=== PATIENT | female | born 1950 | race African-American/Black ===

== ENCOUNTER 2017-10-23 17:27 | Inpatient (IN) | payer MEDICARE, SELFPAY ==
[2017-10-23 18:30] LABS: #Basophils 0.1 thou/uL (0.0-0.2); #Lymphocytes 1.6 thou/uL (1.20-3.40); #Monocytes 0.6 thou/uL (0.11-0.59); %Basophils 1.7 % (0.0-1.0); %Eosinophils 0.7 % (0.0-10.0); %Lymphocytes 25.4 % (21.0-51.0); %Monocytes 9.1 % (0.0-10.0); %Neutrophils 63.1 % (42.0-75.0); Hemoglobin 13.1 g/dL (12.0-16.0); Mean Corpuscular HGB CONC 32.4 g/dL (32.0-36.0); Mean Corpuscular Hemoglobin 28.8 pg (27.0-31.0); Mean Corpuscular Volume 88.8 fl (81.0-99.0); Mean Platelet Volume 8.9 fL (7.4-10.4); Platelet Count 185 thou/uL (130-400); RBC Distribution Width 14.2 % (11.5-14.5); Red Blood Cell (RBC) Count 4.55 mill/uL (4.20-5.40); White Blood Cell (WBC) Count 6.4 thou/uL (4.8-10.8)
--- NOTE | 2017-10-23 18:53 | RAD ---
LEFT HUMERUS TWO VIEWS: 10/23/2017 HISTORY: Left upper arm pain after falling from a standing position. FINDINGS: There is a fracture involving the most proximal left humeral diaphysis/metadiaphysis, and the distal fracture fragment is displaced medially by approximately 2.4 cm, and there is mild overriding of the fracture fragments with slight apex medial angulation of fracture fragments. No additional fracture is seen, and there is no obvious dislocation appreciated on the provided images. IMPRESSION: Displaced and mildly angulated fracture involving the proximal left humerus. POS: ROSE
--- NOTE | 2017-10-23 18:55 | RAD ---
LEFT SHOULDER THREE VIEWS: 10/23/2017 HISTORY: Left upper arm pain after falling from a standing position. FINDINGS: As noted on views of the humerus, there is a fracture involving the left proximal humeral metadiaphys is, and the distal fracture fragment is displaced medially by almost one full shaft width, and there is medial angulation of the fracture fragments. There is irregularity in the region of the lateral a spect of humeral head on the provided images, and fracture extending through the region of the greate r tuberosity is a possibility. IMPRESSION: Displaced and as well as angulated fracture involving the proximal left humerus. Fracture may also extend into the region of the greater tuberosity. POS: ROSE
[2017-10-23 19:01] LABS: ALT (SGPT) 20 U/L (8-55); AST (SGOT) 34 U/L (5-34); Albumin 4.1 g/dL (3.4-4.8); Alkaline Phosphatase 145 U/L (40-150); Anion Gap 14 mmol/L (10-20); BUN (Urea Nitrogen) 11 mg/dL (9.8-20.1); Bilirubin, Total 0.3 mg/dL (0.2-1.2); Calc. Creatinine Clearance 0 mL/min (70-130); Calcium 9.7 mg/dL (7.8-10.44); Carbon Dioxide 26 mmol/L (23-31); Chloride 105 mmol/L (98-107); Estimated GFR-MDRD Greater than 90; Globulin 4.2 g/dL (2.4-3.5); Glucose 111 mg/dL (80-115); Potassium 4.5 mmol/L (3.5-5.1); Protein, Total 8.3 g/dL (6.0-8.3); Sodium 140 mmol/L (136-145)
[2017-10-23] MEDS ORDERED: Ondansetron ODT 4 MG TAB ONE (19:39)
[2017-10-23] MEDS ORDERED: Morphine 4 MG/ML VIAL ONE (19:39)
[2017-10-23] MEDS ORDERED: Fentanyl 100 MCG/2 ML VIAL ONE (19:44)
[2017-10-23] MEDS ORDERED: Morphine 4 MG/ML VIAL SLOW IVP PRN (21:38)
[2017-10-23] MEDS ORDERED: hydrALAZINE 20 MG/ML VIAL SLOW IVP PRN (21:38)
[2017-10-23] MEDS ORDERED: Dextrose 5% in Water 1,000 ML IV PRN (21:38)
[2017-10-23] MEDS ORDERED: HYDROcodone/Acetaminophen 10/325 mg Tablet PO PRN ×2 (21:38)
[2017-10-23] MEDS ORDERED: Dextrose 50% Abboject 50 ML SYRINGE SLOW IVP PRN (21:38)
[2017-10-23] MEDS ORDERED: Famotidine 20 MG TAB PO SCH (21:45)
[2017-10-23 21:55] VITALS: BMI 39.0
--- NOTE | 2017-10-23 22:53 | HP ---
DATE OF ADMISSION: 10/23/2017 REQUESTING PHYSICIAN: Dr. Le, Emergency Department. ADMITTING PHYSICIAN: Daron López M.D. CONSULTING PHYSICIAN: Dr. Wright, Orthopedics. HISTORY OF PRESENT ILLNESS: Ms. Henriquez is a 67-year-old female, who was in her usual state of heal th today when she was working at her house and get down to straighten out a rug and subsequently fell over. She reports that she fell against the wall and hit her left arm. She felt an immediate pain in her left arm and felt a deformity. She did not have any loss of consciousness. There were no oth er injuries. Pain is exacerbated by movement. Pain is alleviated by nothing. She was transported t o the Emergency Department, where a left humerus fracture was identified. Trauma Services was consul jose for admission and management. Dr. Wright, Orthopedics, was consulted for management of fractur e. The patient was evaluated in the ER. PAST MEDICAL HISTORY: 1. Heart murmur. 2. Hypertension. 3. Epilepsy. PAST SURGICAL HISTORY: Bilateral tubal ligation. SOCIAL HISTORY: The patient lives at home with . Denies alcohol, drug or tobacco use. ALLERGIES: No known drug allergies. CURRENT MEDICATIONS: 1. Phenytoin 300 mg at bedtime. 2. Phenobarbital 32.4 mg twice daily. 3. Lisinopril 10 mg daily. EKG: Normal sinus rhythm. LABORATORY STUDIES: Hematology: WBC 6.4, RBC 4.55, hemoglobin 13.1, hematocrit 40.1, platelets 185. Chemistry: Sodium 140, potassium 4.5, chloride 105, carbon dioxide 26, BUN 11, creatinine 0.75, gl ucose 111. DIAGNOSTIC IMAGING: Displaced angulated fracture involving the proximal left humerus. REVIEW OF SYSTEMS: Constitutional: The patient denies chills, fever, recent weight loss, or general malaise. HEENT: Denies otorrhea, rhinorrhea, sore throat, or neck pain. Cardiovascular: Denies c hest pain, palpitations, or syncope. Respiratory: Denies cough, shortness of breath, or wheezing. Gastrointestinal: Denies abdominal pain, nausea, vomiting, diarrhea, or constipation. Musculoskelet al: Complains of pain in left arm, complaints of fall. Skin: Denies rashes or other skin trauma. Neurologic: Denies dizziness, focal weakness or deficit. Psychiatric: Denies. PHYSICAL EXAMINATION: VITAL SIGNS: Blood pressure 141/59, pulse 62, respirations 16, O2 sat 95% on room air. Pain is 0. CONSTITUTIONAL: A well-developed, well-nourished female, in no acute distress, lying on bed. HEENT: Atraumatic, normocephalic. No posterior neck tenderness. Trachea is midline. No JVD. PULMONARY: Bilateral breath sounds clear. No respiratory distress. Chest movement is symmetrical. CARDIOVASCULAR: Regular rate and rhythm. Heart sounds normal. ABDOMEN: Soft, nontender, nondistended, no masses. Pelvis is stable. EXTREMITIES: Bilateral lower extremities within normal limits. Right upper extremity within normal limits. Left upper extremity with deformity noted to the left upper arm. Cap refill brisk, 2+ pulse s in all extremities. Neurovascularly intact in all extremities. BACK: Normal inspection and normal range of motion. No pain with palpation. NEUROLOGIC: GCS is 15. Awake, alert, and oriented x3. PSYCHIATRIC: Normal mood and affect. SKIN: Warm and dry, color within normal limits. ASSESSMENT: 1. Status post ground level fall. 2. Left displaced humerus fracture. 3. Acute traumatic pain. 4. History of epilepsy, present on admission. 5. History of hypertension, present on admission. PLAN: 1. Admit to surgical floor by Trauma Services. 2. Consult to Adriana, Orthopedics. Dr. Wright plan to take the patient to OR in the morning. 3. Regular diet until midnight. N.p.o. after midnight. IV fluids after midnight. 4. Oral analgesia with IV for breakthrough. 5. Pepcid for PUD prophylaxis. 8. SCDs for DVT prophylaxis. Plan of care was discussed at length with patient and family. The patient was reviewed with Dr. López, who agrees with plan.
[2017-10-23] MEDS: Sodium Chloride 0.9% 1,000 ML IV SCH (23:03)
[2017-10-23] MEDS: Acetaminophen 1,000 MG in Premix Bag 1 BAG IVPB SCH (23:05)
[2017-10-24 05:39] LABS: Anion Gap 10 mmol/L (10-20); BUN (Urea Nitrogen) 10 mg/dL (9.8-20.1); Calc. Creatinine Clearance 150 mL/min (70-130); Calcium 8.7 mg/dL (7.8-10.44); Carbon Dioxide 23 mmol/L (23-31); Chloride 110 mmol/L (98-107); Estimated GFR-MDRD Greater than 90; Glucose 95 mg/dL (80-115); Potassium 4.4 mmol/L (3.5-5.1); Sodium 139 mmol/L (136-145)
[2017-10-24] MEDS: Acetaminophen 1,000 MG in Premix Bag 1 BAG IVPB SCH ×2 (05:53→12:32)
[2017-10-24] MEDS ORDERED: Fentanyl 250 MCG/5 ML VIAL ONE (08:15)
[2017-10-24] MEDS ORDERED: Ondansetron ODT 4 MG TAB ONE (08:20)
[2017-10-24] MEDS ORDERED: CEFAZOLIN/Water 2 GM/20 ML SYRINGE ONE (08:20)
[2017-10-24] MEDS ORDERED: PHENobarbital 32.4 MG TAB PO SCH (09:00)
[2017-10-24] MEDS ORDERED: Lisinopril 10 MG TAB PO SCH (09:00)
[2017-10-24] MEDS ORDERED: Famotidine 20 MG TAB PO SCH (09:00)
[2017-10-24] MEDS ORDERED: Aspirin 81 mg Enteric Coated Tablet PO SCH (09:00)
[2017-10-24] MEDS ORDERED: Phenylephrine HCL 10 MG/ML VIAL ONE (09:15)
[2017-10-24] MEDS ORDERED: Promethazine HCl 25 MG/ML VIAL SLOW IVP PRN (09:32)
[2017-10-24] MEDS ORDERED: HYDROmorphone 2 MG/ML VIAL SLOW IVP PRN (09:32)
[2017-10-24] MEDS ORDERED: Promethazine HCl 25 MG/ML VIAL IM PRN (09:32)
[2017-10-24] MEDS ORDERED: Morphine Sulfate 2 MG/ML SYRINGE SLOW IVP PRN (09:32)
[2017-10-24] MEDS ORDERED: Ondansetron HCl/PF 4 MG/2 ML Vial IVP PRN (09:32)
[2017-10-24] MEDS ORDERED: traMADol HCl 50 MG TAB PO PRN ×2 (10:07)
[2017-10-24] MEDS: Sodium Chloride 0.9% 1,000 ML IV SCH ×2 (13:07→18:04)
[2017-10-24 13:37] VITALS: BP 140/81; TEMP 97.7
[2017-10-24] MEDS ORDERED: PROPOFOL 200 MG/20 ML VIAL ONE (14:03)
[2017-10-24] MEDS ORDERED: ePHEDrine/0.9% NaCl/PF SYRINGE 50 mg/10 ml ONE (14:03)
[2017-10-24] MEDS ORDERED: PHENYLEPHRINE-NS 100 MCG/ML 10 ML SYRINGE ONE (14:03)
[2017-10-24] MEDS ORDERED: Lidocaine 1% PF 5 ML VIAL ONE (14:03)
[2017-10-24] MEDS ORDERED: Glycopyrrolate 0.2 MG/ML 5 ML SYRINGE ONE (14:03)
[2017-10-24] MEDS ORDERED: Dexamethasone 20 MG/5 ML VIAL ONE (14:03)
[2017-10-24] MEDS ORDERED: Ibuprofen 600 MG TAB PO SCH (15:00)
[2017-10-24] MEDS ORDERED: CEFAZOLIN/Water 2 GM/20 ML SYRINGE SLOW IVP SCH (16:00)
[2017-10-24] MEDS ORDERED: Acetaminophen 500 MG TAB PO SCH (18:00)
--- NOTE | 2017-10-24 18:17 | RAD ---
INTRAOPERATIVE FLUOROSCOPY: HISTORY: ORIF left humerus. COMPARISON: None. EXPOSURE: 56.8 seconds 9.54 mGy FINDINGS: Three fluoroscopic views demonstrate a proximal humerus fracture. There is an intramedullary cristina wit h three separate screws that traverse the proximal and mid humerus. IMPRESSION: Fluoroscopy as above. POS: ROSE
--- NOTE | 2017-10-25 14:22 | OP ---
DATE OF SURGERY: 10/24/2017 PREOPERATIVE DIAGNOSIS: Left proximal humerus fracture. POSTOPERATIVE DIAGNOSIS: Left proximal humerus fracture. SURGICAL PROCEDURE: IM nail of left proximal humerus fracture. ANESTHESIA: General. SURGEON: Harvey Wright M.D. ESTIMATED BLOOD LOSS: 50 mL IMPLANTS: A Synthes 7 x 150 mm humeral X nail was used with a spiral blade and 2 locking screws. COMPLICATIONS: None. DRAINS: None. SPECIMENS: None. OUTCOME: Satisfactory. INDICATIONS: The patient is a 67-year-old lady status post left proximal humerus fracture with displ acement. After discussion with patient including risks and benefits, we decided to proceed with IM n ail stabilization to improve alignment and hopefully provide more reliable healing. Informed consent has been obtained. I believe all questions answered. DESCRIPTION OF PROCEDURE: The patient was brought to the operating room and a timeout performed, fol lowed by induction of general anesthesia. Next, the patient was positioned in a beach chair position and a sterile prep and drape was performed in the left upper extremity. Next, a small incision was made keying off the anterior lateral corner of the acromion. After skin was sharply incised, dissect ion was carried down bluntly to the underlying deltoid. The deltoid was incised in line with the ski n incision and a deltoid splitting approach to the underlying proximal humerus was obtained. The sub deltoid bursa was resected and then the greater tuberosity and the attachment of the rotator cuff on the tuberosity was visualized. Next, a guidewire was passed just posterior to the bicipital groove c entered on the tip of the greater tuberosity and trying to avoid as much of the cuff as possible. On ce this was passed down the canal of the femur, an opening reamer was passed over this guidewire. Ne xt, the 7 x 150 mm nail was passed from this opening across the fracture into the proximal humeral sh aft and with its passage, excellent alignment was achieved. Next, the jig was applied and then a sec ond small incision was made distal to the first and then the spiral blade was inserted in standard fa shion after the threaded guidewire was passed through the jig. Next, a second proximal screw was edward cassius again using the same proximal jig and then a single distal cross-locking screw was applied gettin g excellent stability across the fracture. Next, the jig was removed from the proximal end of the na il and then the locking mechanism engaged for the spiral blade. The three incisions were irrigated w ith normal saline. The two distal incisions were closed with jean paul. The proximal incision was destin sed in layers with 0 Vicryl for the deltoid fascia, 2-0 Vicryl and jean paul for the skin. A Xeroform gauze and tape dressing was applied to the shoulder and then patient was transferred to recovery room in stable condition. There were no complications and she tolerated the procedure well.
--- NOTE | 2017-10-25 14:22 | DIS ---
DATE OF ADMISSION: 10/23/2017 DATE OF DISCHARGE: 10/24/2017 ADMITTING PHYSICIAN: Dr. Daron López. DISCHARGING PHYSICIAN: Dr. Fermin Arnold. ADMISSION DIAGNOSES: 1. Status post ground level fall. 2. Left displaced humerus fracture. 3. Acute traumatic pain. 4. History of epilepsy, present on admission. 5. History of hypertension, present on admission. DISCHARGE DIAGNOSES: 1. Status post ground level fall. 2. Left displaced humerus fracture. 3. Acute traumatic pain. 4. History of epilepsy, present on admission. 5. History of hypertension, present on admission. PROCEDURES PERFORMED: Open reduction internal fixation of left humerus. HOSPITAL COURSE: Ms. eHnriquez is a 67-year-old female who was in her usual state of health when she suffered a ground level fall at home. She fell against the wall and hit her left arm. She was trans ported to the [place] ED where a left humerus fracture was identified. Trauma services was consul jose for admission and Orthopedic Surgery was consulted for surgical management of the fracture. Aicha ent underwent surgical fixation of her fracture this following morning. After that, she was transfer red to the surgical floor where she remained hemodynamically stable and with adequate pain control. The patient was discharged home later that day in good condition. DISCHARGE MEDICATIONS: The patient was given a prescription for tramadol 50 mg tablets 1 tablet q.6 hours as needed for pain. Patient was also discharged with [id number] ibuprofen and Tylenol. Activity instructions include orthopedic limitations with no weightbearing on left arm. NURSING INSTRUCTIONS: Regular diet. THERAPY INSTRUCTIONS: None. FOLLOWUP INSTRUCTIONS: The patient to follow up with the primary care doctor in 7 days. The patient also instructed to follow up with Dr. Harvey Wright in 10 days. This patient was seen and examined on rounds with Dr. Arnold who agrees with this discharge plan.
== END 2017-10-24 19:09 | disposition home or self-care (01) | DRG 494 ==
LOC: ERS 17:27 → SURG A 21:27
PROVIDERS: ADMIT Specialist; ATTEND Specialist
PROC: 0PSD06Z Reposition Left Humeral Head with Intramedullary Internal Fixation Device, Open Approach (ICD-10-PCS; principal; 2017-10-24)
DX: S42.202A Unspecified fracture of upper end of left humerus, initial encounter for closed fracture (principal); G40.909 Epilepsy, unspecified, not intractable, without status epilepticus; G89.11 Acute pain due to trauma; I10 Essential (primary) hypertension; Z79.82 Long term (current) use of aspirin; Z79.899 Other long term (current) drug therapy; W18.39XA Other fall on same level, initial encounter; Y92.019 Unspecified place in single-family (private) house as the place of occurrence of the external cause
CPT/HCPCS: 36415; 76001; 80048; 80053; 85025; 93005; 96374; 96375; C1713; C1769; G0390; G8978-GP-CI; G8979-GP-CI; G8980-GP-CI; J0131; J1100; J2001; J2270; J2370; J2704; J3010; Q0162

== ENCOUNTER 2018-02-26 07:17 | Emergency (ER) | payer MEDICARE ==
[2018-02-26] MEDS ORDERED: Morphine 4 MG/ML VIAL ONE (07:33)
[2018-02-26] MEDS ORDERED: Ketorolac Tromethamine 30 MG/ML VIAL ONE (07:52)
[2018-02-26 08:01] LABS: #Lymphocytes 2.8 thou/uL (1.20-3.40); #Monocytes 0.6 thou/uL (0.11-0.59); #Neutrophils 3.7 thou/uL (1.40-6.50); %Basophils 0.7 % (0.0-1.0); %Eosinophils 0.4 % (0.0-10.0); %Monocytes 8.5 % (0.0-10.0); %Neutrophils 51.5 % (42.0-75.0); Hemoglobin 14.2 g/dL (12.0-16.0); Mean Corpuscular HGB CONC 31.8 g/dL (32.0-36.0); Mean Corpuscular Hemoglobin 27.7 pg (27.0-31.0); Mean Corpuscular Volume 87.2 fL (78.0-98.0); Mean Platelet Volume 9.2 fL (7.4-10.4); Platelet Count 176 thou/uL (130-400); RBC Distribution Width 14.3 % (11.5-14.5); Red Blood Cell (RBC) Count 5.14 mill/uL (4.20-5.40); White Blood Cell (WBC) Count 7.2 thou/uL (4.8-10.8)
--- NOTE | 2018-02-26 08:13 | CT ---
CT LUMBAR SPINE: Multiple axial tomograms were obtained through the lumbar spine with multiplanar reconstruction. INDICATION: Back pain. Difficulty walking. FINDINGS: The lumbar vertebrae maintain height and alignment in this sagittal projection. There is loss of dis k space at L5-S1 with degenerative disk changes and vacuum phenomenon at this level. The other disk spaces are preserved. At L1-2, a broad-based disk bulge is present combined with facet and ligamentous hypertrophy resultin g in moderate central canal stenosis. At L2-3, diffuse disk bulge and posterior hypertrophic change results in mild to moderate central can al stenosis. At L3-4, a broad-based disk bulge combined with facet and ligamentous hypertrophy results in moderate central canal stenosis. At L4-5, a slight anterolisthesis. Diffuse broad-based disk bulge. Very pronounced facet and ligame ntous hypertrophy. Severe central canal stenosis at this level. Bilateral foraminal stenosis second joaquin to this broad-based disk bulge. At L5-S1, degenerative disk changes with diffuse disk bulge. Facet hypertrophy. Moderate to severe central canal stenosis and bilateral foraminal stenosis. IMPRESSION: Severe central canal stenosis at L4-5 and moderate to severe stenosis at L5-S1. See findings at each level described above. POS: ROSE
[2018-02-26 08:21] LABS: Bilirubin Negative (Negative); Blood, Urine Negative (Negative); Clarity Clear (Clear); Glucose, Urine (Dipstick) Negative (Negative); Leukocyte Negative (Negative); Nitrite Negative (Negative); Protein, Urine (Dipstick) Trace mg/dL (Neg-Trace); Urobilinogen 0.2 mg/dL (0.2-1.0)
[2018-02-26 08:21] LABS: ALT (SGPT) 19 U/L (8-55); AST (SGOT) 26 U/L (5-34); Albumin 4.1 g/dL (3.4-4.8); Alkaline Phosphatase 175 U/L (40-150); Anion Gap 13 mmol/L (10-20); BUN (Urea Nitrogen) 13 mg/dL (9.8-20.1); Bilirubin, Total 0.3 mg/dL (0.2-1.2); Calc. Creatinine Clearance 0 mL/min (70-130); Calcium 9.9 mg/dL (7.8-10.44); Carbon Dioxide 29 mmol/L (23-31); Chloride 103 mmol/L (98-107); Estimated GFR-MDRD 83; Globulin 4.3 g/dL (2.4-3.5); Glucose 95 mg/dL (80-115); Lipase 35 U/L (8-78); Protein, Total 8.4 g/dL (6.0-8.3); Sodium 141 mmol/L (136-145)
== END 2018-02-26 09:29 | disposition home or self-care (01) ==
LOC: ERS 07:17
DX: M51.16 Intervertebral disc disorders with radiculopathy, lumbar region (principal); I10 Essential (primary) hypertension; F41.9 Anxiety disorder, unspecified; Z79.899 Other long term (current) drug therapy
CPT/HCPCS: 72131; 80053; 81003; 83690; 85025; 96374; J1885; J2270

== ENCOUNTER 2019-01-09 11:12 | Emergency (ER) | payer MEDICARE ==
--- NOTE | 2019-01-09 11:53 | RAD ---
RIGHT KNEE RADIOGRAPHS FOUR VIEWS: 01/09/2019 PROVIDED CLINICAL HISTORY: Pain, status post injury. FINDINGS: Advanced degenerative changes are present with multiple osteophyte intra-articular bodies posteriorly . No evidence for fracture or other acute osseous abnormality. If there is persistent clinical conc jose, conservative management and follow-up imaging are advised. IMPRESSION: As above. POS: OFF
[2019-01-09] MEDS ORDERED: traMADol HCl 50 MG TAB ONE (11:56)
--- NOTE | 2019-01-09 12:07 | RAD ---
LEFT ANKLE RADIOGRAPHS THREE VIEWS: 01/09/2019 PROVIDED CLINICAL HISTORY: Pain, status post fall. FINDINGS: Plantar calcaneal enthesophyte formation is demonstrated. There is a distracted fracture involving t he base of the 5th metatarsal. No additional fracture is evident. IMPRESSION: Distracted base of 5th metatarsal fracture. Consider dedicated foot radiographs. POS: OFF
--- NOTE | 2019-01-09 12:32 | RAD ---
EXAM: XR Foot Lt 3 View STANDARD DATE: 01/09/2019 12:17 PM INDICATION: Fall with left foot injury COMPARISON: None FINDING: There is healed fracture deformity of the distal fifth metatarsal shaft. There are periarti cular erosions involving the fifth metatarsal head, great toe metatarsal head and medial aspect of the great toe proximal phalanx. There is soft tissue prominence overlying the fifth MTP joint as well as the great toe MTP joint. Findings can be seen with entities such as gout. There is a minimally displaced transverse oriented fracture involving the base of the fifth metatarsal. There is scattered degenerative change of the midfoot. There is soft tissue swelling of the foot. There is enthesopathic change off the plantar calcaneus. IMPRESSION: 1. Minimally displaced transverse oriented fracture involving the base of the fifth metatarsal. 2. Bony and soft tissue changes of the great toe and fifth digit MTP joint suspicious for possible go ut. Recommend correlation. 3. Healed deformity involving the distal fifth metatarsal shaft.
== END 2019-01-09 13:35 | disposition home or self-care (01) ==
LOC: ERS 11:12
DX: S92.352A Displaced fracture of fifth metatarsal bone, left foot, initial encounter for closed fracture (principal); S80.211A Abrasion, right knee, initial encounter; S93.601A Unspecified sprain of right foot, initial encounter; M10.9 Gout, unspecified; I10 Essential (primary) hypertension; G40.909 Epilepsy, unspecified, not intractable, without status epilepticus; F41.9 Anxiety disorder, unspecified; Z79.899 Other long term (current) drug therapy; W19.XXXA Unspecified fall, initial encounter

== ENCOUNTER 2021-05-06 03:09 | Emergency (ER) | payer MEDICARE ==
[2021-05-06 04:03] LABS: #Basophils 0.1 thou/uL (0.0-0.2); #Eosinphils 0.1 thou/uL (0.0-0.7); #Lymphocytes 2.2 thou/uL (1.20-3.40); #Monocytes 0.5 thou/uL (0.11-0.59); #Neutrophils 3.9 thou/uL (1.40-6.50); %Basophils 0.9 % (0.0-1.0); %Eosinophils 1.2 % (0.0-10.0); %Lymphocytes 32.8 % (21.0-51.0); %Monocytes 6.9 % (0.0-10.0); %Neutrophils 58.3 % (42.0-75.0); Hemoglobin 13.6 g/dL (12.0-16.0); Mean Corpuscular HGB CONC 31.9 g/dL (32.0-36.0); Mean Corpuscular Hemoglobin 28.9 pg (27.0-31.0); Mean Corpuscular Volume 90.6 fL (78.0-98.0); Mean Platelet Volume 9.8 fL (7.4-10.4); Platelet Count 165 thou/uL (130-400); RBC Distribution Width 14.4 % (11.5-14.5); Red Blood Cell (RBC) Count 4.71 mill/uL (4.20-5.40); White Blood Cell (WBC) Count 6.7 thou/uL (4.8-10.8)
[2021-05-06 04:33] LABS: ALT (SGPT) 15 U/L (8-55); AST (SGOT) 18 U/L (5-34); Albumin 3.7 g/dL (3.4-4.8); Alkaline Phosphatase 120 U/L (40-110); Anion Gap 15 mmol/L (10-20); BUN (Urea Nitrogen) 21 mg/dL (9.8-20.1); Bilirubin, Total 0.2 mg/dL (0.2-1.2); Calc. Creatinine Clearance 0 mL/min (70-130); Calcium 10.2 mg/dL (7.8-10.44); Carbon Dioxide 23 mmol/L (23-31); Chloride 104 mmol/L (98-107); Globulin 4.5 g/dL (2.4-3.5); Glucose 112 mg/dL (80-115); Potassium 3.9 mmol/L (3.5-5.1); Protein, Total 8.2 g/dL (5.8-8.1); Sodium 138 mmol/L (136-145)
== END 2021-05-06 08:45 | disposition home or self-care (01) ==
LOC: ERS 03:09
DX: T42.3X1A Poisoning by barbiturates, accidental (unintentional), initial encounter (principal); G40.909 Epilepsy, unspecified, not intractable, without status epilepticus; I10 Essential (primary) hypertension; Z79.82 Long term (current) use of aspirin; Z79.899 Other long term (current) drug therapy
CPT/HCPCS: 36415; 70450; 80053; 80184; 80185; 85025; 93005